=== PATIENT | female | born 1965 | race Caucasian/White ===

== ENCOUNTER 2017-07-02 06:11 | Day surgery (SDC) | payer BC ==
[~2017-07-02] VITALS: Ht 165.1 cm; Wt 88.5 kg
--- NOTE | ~2017-07-02 | EGD ---
EGD REPORT [facility] [address] [place] [id number] NAME: KEY LEAVITT : [birth year] STATUS : REG [place] PAT#: [id number] AGE: 51 ADM/REG DATE : 07/02/17 MR#: [id number] REPORT SERV DATE: 07/02/17 DICTATED BY: CLAY ADAMS DATE: 07/02/17 REPORT STATUS : Draft TRANSCRIBED BY: [facility] DATE: 07/02/17 [facility] Patient Name: Key Leavitt Date of : 1965 Attending MD: CLAY ADAMS, Procedure Date No Time: 07/02/2017 Procedure: Colonoscopy Indications: Screening in patient at increased risk: Colorectal cancer in mother before age 60, This is the patient's first colonoscopy Referring MD: Danielle Spann Medicines: Propofol per Anesthesia Complications: No immediate complications. Estimated blood loss: None. Procedure: Pre-Anesthesia Assessment: - After reviewing the risks and benefits, the patient was deemed in satisfactory condition to undergo the procedure. - ASA Grade Assessment: II - A patient with mild systemic disease. After I obtained informed consent, the scope was passed under direct vision. Throughout the procedure, the patient's blood pressure, pulse, and oxygen saturations were monitored continuously. The PCF [id number] was introduced through the anus and advanced to the terminal ileum. The colonoscopy was performed with ease. The patient tolerated the procedure well. The quality of the bowel preparation was good. The ileocecal valve, appendiceal orifice, terminal ileum and rectum were photographed. Findings: The perianal exam was abnormal. Findings include a skin tag. The terminal ileum appeared normal. Three hyperplastic-appearing polyps were found in the rectum (x2) and in the cecum (x1). The polyps were 3 mm in size. These polyps were removed with a cold biopsy forceps. Resection and retrieval were complete. Estimated blood loss: none. Anal papilla(e) were hypertrophied. Impression: - Perianal skin tag found on perianal exam. - The examined portion of the ileum was normal. - Three 3 mm polyps in the rectum and in the cecum. Resected and retrieved. - Anal papilla(e) were hypertrophied. EGD REPORT [address] [place]. [address] NAME: KEY LEAVITT : 63 STATUS : REG [place] PAT#: [id number] AGE: 51 ADM/REG DATE : 07/02/17 MR#: [id number] REPORT SERV DATE: 07/02/17 DICTATED BY: CLAY ADAMS DATE: 07/02/17 REPORT STATUS : Draft TRANSCRIBED BY: [employer] DATE: 07/02/17 Recommendation: - Patient has a contact number available for emergencies. The signs and symptoms of potential delayed complications were discussed with the patient. Return to normal activities tomorrow. Written discharge instructions were provided to the patient. - Regular diet. - Discharge patient to home (with escort). - Continue present medications. - Await pathology results. - Return to GI clinic to discuss pathology results with nurse practioner in 2-4 weeks. - Repeat colonoscopy in 5 years for surveillance. Procedure Code(s): --- Professional --- 30047, Colonoscopy, flexible, proximal to splenic flexure; with biopsy, single or multiple Diagnosis Code(s): --- Professional --- K64.4, Residual hemorrhoidal skin tags K62.1, Rectal polyp D12.0, Benign neoplasm of cecum K62.89, Other specified diseases of anus and rectum Z12.11, Encounter for screening for malignant neoplasm of colon Z80.0, Family history of malignant neoplasm of digestive organs CPT copyright 2013 [employer]. All rights reserved. The codes documented in this report are preliminary and upon diazo technician review may be revised to meet current compliance requirements. CLAY ADAMS, 07/02/2017 7:50 AM This report has been signed electronically. Number of Addenda: 0 Note Initiated On: 07/02/2017 7:18 AM Scope Withdrawal Time 0 hours 12 minutes 2 seconds [id number] [place] [id number]
[~2017-07-02 06:11] MED LIST: GLUCPH PO; POTASSIUM OTC PO
== END 2017-07-02 23:59 | disposition home or self-care (01) ==
LOC: DMU 06:11
PROVIDERS: Internal Medicine Gastroenterology
PROC: 0DBH8ZX Excision of Cecum, Via Natural or Artificial Opening Endoscopic, Diagnostic (ICD-10-PCS; 2017-07-02)
PROC: 0DBP8ZX Excision of Rectum, Via Natural or Artificial Opening Endoscopic, Diagnostic (ICD-10-PCS; principal; 2017-07-02 07:00)
DX: Z12.11 Encounter for screening for malignant neoplasm of colon (principal); K63.5 Polyp of colon; K62.1 Rectal polyp; K64.4 Residual hemorrhoidal skin tags; K62.89 Other specified diseases of anus and rectum; E11.9 Type 2 diabetes mellitus without complications; E78.00 Pure hypercholesterolemia, unspecified; Z87.891 Personal history of nicotine dependence; Z90.49 Acquired absence of other specified parts of digestive tract; Z90.89 Acquired absence of other organs; Z98.890 Other specified postprocedural states; Z80.0 Family history of malignant neoplasm of digestive organs
CPT/HCPCS: 82962; 88305